=== PATIENT | female | born 1975 ===

== ENCOUNTER 2024-10-21 05:47 | Inpatient (IN) | payer OTHER ==
[2024-10-16 09:30] LABS: URINE APPEARANCE Clear; URINE BILIRRUBIN Negative (NEGATIVE); URINE BLOOD Negative; URINE COLOR Yellow; URINE GLUCOSE Negative (NEGATIVE); URINE KETONE Negative (NEGATIVE); URINE LEUKOCYTE Negative; URINE NITRATE Negative; URINE PROTEIN Negative (NEGATIVE)
[2024-10-16 09:34] LABS: URINE BACTERIA 15.9 uL (0.0-1933); URINE EPITHELIAL CELLS 11.6 uL (0.0-38.8); URINE WBC 2.6 uL (0.0-23.2)
[2024-10-16 09:35] VITALS: BP 115/76
[2024-10-16 09:42] LABS: INR 1.02; PARTIAL THROMBOPLASTIN TIME 25.9 SECONDS (22.0-34.0); PROTHROMBIN TIME 11.1 SECONDS (9.0-11.5)
[2024-10-16 09:47] LABS: URINE CAST 0.58 uL (0.0-1.40)
[2024-10-16 10:07] LABS: HEMATOCRIT 38.1 % (36.0-45.00); HEMOGLOBIN 12.7 g/dL (12.0-15.00); MEAN CELL VOLUME 87.1 fL (80.00-100.00); MEAN CORPUSCULAR HEMOGLOBIN 29.1 pg (27.00-32.0); MEAN CORPUSCULAR HGB CONC 33.3 g/dl (32.0-36.0); PLATELET COUNT 185 K/uL (150-450); RED BLOOD COUNT 4.37 M/uL (4.00-6.00); RED CELL DISTRIBUTION WIDTH 15.1 % (11.5-14.5)
[2024-10-16 10:29] LABS: ALBUMIN 3.9 gm/dL (3.4-5.0); BILIRUBIN TOTAL 0.55 mg/dL (0.3-1.2); CALCIUM 9.2 mg/dL (8.5-10.1); CREATININE SERUM 0.7 mg/dL (0.55-1.02); GFR 88.94; GLOBULINA 3.9 G/DL (2.4-3.5); POTASSIUM 4.53 mEq/L (3.5-5.1); TOTAL PROTEIN 7.8 gm/dL (6.4-8.2)
[~2024-10-21] VITALS: Ht 165.1 cm; Wt 88.5 kg
[~2024-10-21 05:47] MED LIST: CLARITIN-D 241 EACH PO; DIFLUCAN PO
[2024-10-21] MEDS ORDERED: CEFAZOLIN SODIUM 1,000 MG VIAL ONE ×2 (07:09→12:58)
[2024-10-21] MEDS ORDERED: ACETAMINOPHEN 500 MG GEL..CAP PO SCH (09:17)
[2024-10-21] MEDS ORDERED: CEFAZOLIN SODIUM 1,000 MG VIAL IV SCH (09:18)
[2024-10-21] MEDS ORDERED: MORPHINE SULFATE 4 MG/ML CARTRIDGE IV PRN (09:30)
[2024-10-21] MEDS ORDERED: MORPHINE SULFATE 4 MG/ML VIAL IV ONE ×2 (10:35)
[2024-10-21 13:24] VITALS: BP 112/76; O2SAT 95
[2024-10-21 16:38] VITALS: BP 107/66; O2SAT 96
[2024-10-21] MEDS ORDERED: ONDANSETRON HCL 2 MG/ML VIAL IV PRN (17:45)
[2024-10-22] VITALS: BP 118/77; O2SAT 96
[2024-10-22 08:00] VITALS: BP 111/71; O2SAT 98
[2024-10-22] MEDS ORDERED: FAMOtidine 20 MG TABLET PO SCH (09:00)
== END 2024-10-22 11:50 | disposition home or self-care (01) | DRG 331 ==
LOC: CIR.AMB 05:47 → O/R 11:18 → SURG 11:18 → CIR.AMB 12:45 → SURG 10-22 11:50
PROVIDERS: ADMIT Surgery; ATTEND Surgery
PROC: 0USG4ZZ Reposition Vagina, Percutaneous Endoscopic Approach (ICD-10-PCS; 2024-10-21)
PROC: 0DN84ZZ Release Small Intestine, Percutaneous Endoscopic Approach (ICD-10-PCS; 2024-10-21)
PROC: 8E0W4CZ Robotic Assisted Procedure of Trunk Region, Percutaneous Endoscopic Approach (ICD-10-PCS; 2024-10-21)
PROC: 0DQP4ZZ Repair Rectum, Percutaneous Endoscopic Approach (ICD-10-PCS; principal; 2024-10-21 19:20)
DX: K62.3 Rectal prolapse (principal); N81.3 Complete uterovaginal prolapse; K66.0 Peritoneal adhesions (postprocedural) (postinfection)
CPT/HCPCS: 45400; 57425; 44180; S2900